=== PATIENT | female | born 1965 | race Caucasian/White ===

== ENCOUNTER 2021-03-05 04:27 | Day surgery (SDC) | payer OTHER ==
[2021-03-04 15:03] VITALS: BMI 43.9
[2021-03-05] MEDS ORDERED: LIDOCAINE 1% P/F 10 MG/ML VIAL INF ONE (09:51)
[2021-03-05] MEDS ORDERED: IOHEXOL 180 MG/1 ML ML IJ ONE (09:54)
[2021-03-05] MEDS ORDERED: BUPIVACAINE HCL/PF 0.75% 10 ML VIAL NR ONE (09:55)
[2021-03-05 12:03] VITALS: BP 107/45; PULSE 56; TEMP 96.6
== END 2021-03-05 11:40 | disposition home or self-care (01) ==
LOC: JASU-SURG 04:27
PROVIDERS: ATTEND Pain Medicine Pain Medicine
PROC: BR16YZZ Fluoroscopy of Lumbar Facet Joint(s) using Other Contrast (ICD-10-PCS; 2021-03-05)
PROC: 3E0T3BZ Introduction of Anesthetic Agent into Peripheral Nerves and Plexi, Percutaneous Approach (ICD-10-PCS; principal; 2021-03-05 10:30)
DX: M47.816 Spondylosis without myelopathy or radiculopathy, lumbar region (principal)
CPT/HCPCS: 76000-TC-FY

== ENCOUNTER 2021-04-02 04:57 | Day surgery (SDC) | payer OTHER ==
[2021-03-31 15:45] VITALS: BMI 43.9
[2021-04-02] MEDS ORDERED: BUPIVACAINE HCL/PF 0.75% 10 ML VIAL ONE (07:15)
[2021-04-02] MEDS ORDERED: LIDOCAINE HCL/PF 1% SDV 5ML VIAL ONE (07:15)
[2021-04-02] MEDS ORDERED: BUPIVACAINE HCL/PF 0.75% 10 ML VIAL NR ONE (11:30)
[2021-04-02] MEDS ORDERED: LIDOCAINE HCL 1% PRESERVATIVE FREE - 30ML VIAL IJ ONE (11:31)
[2021-04-02] MEDS ORDERED: IOHEXOL 180 MG/1 ML ML IJ ONE (11:31)
[2021-04-02] MEDS ORDERED: ACETAMINOPHEN 325 MG TABLET (FP) ONE (13:59)
[2021-04-02 15:11] VITALS: BP 103/58; PULSE 54; TEMP 97.7
== END 2021-04-02 14:10 | disposition home or self-care (01) ==
LOC: JASU-SURG 04:57
PROVIDERS: ATTEND Pain Medicine Pain Medicine
PROC: BR16YZZ Fluoroscopy of Lumbar Facet Joint(s) using Other Contrast (ICD-10-PCS; 2021-04-02)
PROC: 3E0T3BZ Introduction of Anesthetic Agent into Peripheral Nerves and Plexi, Percutaneous Approach (ICD-10-PCS; principal; 2021-04-02 10:15)
DX: M47.816 Spondylosis without myelopathy or radiculopathy, lumbar region (principal)
CPT/HCPCS: 76000-TC-FY

== ENCOUNTER 2022-08-17 09:22 | Day surgery (SDC) | payer OTHER ==
[2022-08-15 11:59] VITALS: BMI 46.9
[2022-08-17] MEDS ORDERED: BSS (NA/CA/MG/K) BALANCED SALT SOLUTION OPHTH SOLN 15 ML BOTTLE ONE (09:45)
[2022-08-17] MEDS ORDERED: LIDOCAINE 1% P/F 10 MG/ML VIAL ONE (09:45)
[2022-08-17] MEDS ORDERED: NEO/POLYMYX B SULF/DEXAMETH OPHTHALMIC 5ML BOTTLE ONE (09:46)
[2022-08-17] MEDS ORDERED: CARBACHOL 0.01% INTRA-OCULAR 1.5 ML VIAL ONE (09:46)
[2022-08-17] MEDS: TROPICAMIDE 1% OPHTH SOLN 15 ML BOTTLE ONE ×3 (10:35→10:45)
[2022-08-17] MEDS: CYCLOPENTOLATE 2% OPHTH SOLN 2 ML BOTTLE ONE ×3 (10:35→10:45)
[2022-08-17] MEDS: CIPROFLOXACIN 0.3% EYE DROPS 5 ML BOTTLE ONE ×3 (10:35→10:45)
[2022-08-17] MEDS: PHENYLEPHRINE 2.5% OPHTH SOLN 15 ML BOTTLE ONE ×3 (10:35→10:45)
[2022-08-17 10:43] VITALS: RESP 16
[2022-08-17] MEDS ORDERED: MIDAZOLAM HCL 2 MG/2 ML SINGLE DOSE VIAL ONE (11:51)
[2022-08-17 12:40] VITALS: BP 137/91; TEMP 97.5
[2022-08-17 12:52] VITALS: PULSE 64
== END 2022-08-17 13:50 | disposition home or self-care (01) ==
LOC: FASU 09:22
PROVIDERS: ATTEND Ophthalmology
PROC: 08RJ3JZ Replacement of Right Lens with Synthetic Substitute, Percutaneous Approach (ICD-10-PCS; principal; 2022-08-17 11:57)
DX: H26.8 Other specified cataract (principal)
CPT/HCPCS: 66984; V2632; 82962

== ENCOUNTER 2023-01-03 13:53 | Emergency (ER) | payer OTHER ==
[2023-01-03 14:15] VITALS: BP 131/59; PULSE 64; RESP 18; TEMP 98.2; BMI 37.8
[2023-01-03] MEDS ORDERED: KETOROLAC TROMETHAMINE 30 MG/1 ML VIAL IM ONE (15:36)
[2023-01-03] MEDS ORDERED: ACETAMINOPHEN 325 MG TABLET (FP) PO ONE (15:36)
[2023-01-03] MEDS ORDERED: LIDOCAINE 5% TOPICAL PATCH TP ONE (15:36)
[2023-01-03] MEDS ORDERED: ACETAMINOPHEN 325 MG TABLET (FP) ONE (15:44)
[2023-01-03] MEDS ORDERED: LIDOCAINE 5% TOPICAL PATCH ONE (15:44)
[2023-01-03] MEDS ORDERED: KETOROLAC TROMETHAMINE 30 MG/1 ML VIAL ONE (15:45)
[2023-01-03 17:11] LABS: EPI CELLS 25 /uL (0-25.1); HYALINE CASTS 1 /uL (0-3.1); PH,URINE 5.5 (5.0-8.0); URINE APPEARANCE CLEAR; URINE BACTERIA 179 /uL (0-1359); URINE BILIRUBIN NEGATIVE (NEGATIVE); URINE COLOR YELLOW; URINE GLUCOSE (UA) NEGATIVE (NEGATIVE); URINE KETONE NEGATIVE (NEGATIVE); URINE LEUK ESTERASE NEGATIVE (NEGATIVE); URINE NITRITE NEGATIVE (NEGATIVE); URINE PROTEIN NEGATIVE (NEGATIVE); URINE RBC 17 /uL (0-23.9); URINE UROBILINOGEN 0.2 mg/dL (0.2-1.0); URINE WBC 6 /uL (0-25.8)
[2023-01-03] MEDS ORDERED: LIDOCAINE PATCH REMOVAL MC ONE (22:00)
== END 2023-01-03 18:00 | disposition home or self-care (01) ==
LOC: JERFT 13:53
PROC: 3E0233Z Introduction of Anti-inflammatory into Muscle, Percutaneous Approach (ICD-10-PCS; principal; 2023-01-03)
DX: N20.0 Calculus of kidney (principal); M54.50 Low back pain, unspecified; R10.9 Unspecified abdominal pain
CPT/HCPCS: 74176-TC; 81003; 87086; 87186; 99284-25

== ENCOUNTER 2023-05-19 08:40 | Day surgery (SDC) | payer OTHER ==
[2023-05-11 15:51] VITALS: BMI 36.7
[2023-05-19] MEDS ORDERED: CEFAZOLIN SODIUM 2 GM in DEXTROSE 5%-WATER 100 ML IVPB ONE (10:00)
[2023-05-19] MEDS ORDERED: BUPIVACAINE HCL/PF 0.5% (5MG/ML) 10 ML VIAL ONE (10:19)
[2023-05-19] MEDS ORDERED: BUPIVACAINE LIPOSOME/PF (EXPAREL) 266 MG/20 ML VIAL ONE (10:19)
[2023-05-19] MEDS ORDERED: FENTANYL CITRATE/PF 50 MCG/ML VIAL ONE (10:19)
[2023-05-19] MEDS ORDERED: MIDAZOLAM HCL 2 MG/2 ML SINGLE DOSE VIAL ONE ×3 (10:19→11:32)
[2023-05-19] MEDS ORDERED: TRANEXAMIC ACID 1000 MG/10 ML VIAL IVPUSH ONE (10:30)
[2023-05-19] MEDS ORDERED: VANCOMYCIN 1,000 MG VIAL (RESTRICTED TO ID ONLY) ONE ×2 (11:20→11:49)
[2023-05-19] MEDS ORDERED: TRANEXAMIC ACID 1000 MG/10 ML VIAL ONE ×2 (11:20→11:49)
[2023-05-19] MEDS ORDERED: ePHEDrine SULFATE 50 MG/1 ML AMPULE ONE (11:29)
[2023-05-19] MEDS ORDERED: PROPOFOL 20 ML ONE ×2 (11:39→12:23)
[2023-05-19] MEDS ORDERED: ceFAZolin SODIUM 1 GM VIAL ONE (11:49)
[2023-05-19] MEDS ORDERED: ONDANSETRON 4 MG/2 ML VIAL ONE (11:49)
[2023-05-19] MEDS ORDERED: DEXAMETHASONE SOD PHOSPHATE 4 MG/1 ML VIAL ONE (11:49)
[2023-05-19] MEDS ORDERED: VASOPRESSIN 20 UNITS/ML VIAL IV ONE (12:08)
[2023-05-19] MEDS ORDERED: BUPIVICAINE 0.25%/MORPH PF/KETOROLAC - 51ML DISP.SYRINGE IA ONE (12:59)
[2023-05-19] MEDS ORDERED: PROPOFOL 40 ML ONE (13:05)
[2023-05-19] MEDS ORDERED: oxyCODONE HCL 5 MG TABLET PO PRN (13:30)
[2023-05-19] MEDS ORDERED: ONDANSETRON 4 MG/2 ML VIAL IVPUSH PRN ×2 (13:30→14:52)
[2023-05-19] MEDS ORDERED: LACTATED RINGERS SOLUTION 1,000 ML IV SCH ×2 (13:30→15:00)
[2023-05-19] MEDS: ACETAMINOPHEN 1000 MG/100 ML BAG IVPB ONE (14:35)
[2023-05-19] MEDS ORDERED: ACETAMINOPHEN INJECTION 100 ML IVPB ONE (14:36)
[2023-05-19] MEDS ORDERED: MAG HYDROX/AL HYDROX/SIMETH 30 ML UNIT-DOSE CUP PO PRN (14:52)
[2023-05-19] MEDS ORDERED: MAGNESIUM HYDROX 2400MG/30ML ORAL SUSPENSION 30 ML CUP PO PRN (14:52)
[2023-05-19] MEDS: SODIUM CHLORIDE 1,000 ML IV SCH (18:45)
[2023-05-19] MEDS: INSULIN SLIDING SCALE (NOVOLOG) 1 VIAL SQ SCH ×2 (18:57→21:10)
[2023-05-19] MEDS: CEFAZOLIN SODIUM 2 GM in DEXTROSE 5%-WATER 100 ML IVPB SCH (20:54)
[2023-05-19] MEDS: ACETAMINOPHEN 1000 MG/100 ML BAG IVPB SCH (20:55)
[2023-05-19] MEDS: GABAPENTIN 300 MG CAPSULE PO SCH (21:10)
[2023-05-19] MEDS: oxyCODONE HCL 10 MG SUSTAINED ACTING TABLET PO SCH (21:11)
[2023-05-19] MEDS: SENNOSIDES/DOCUSATE COMBO (SENNA PLUS) TABLET (UD) PO SCH (21:11)
[2023-05-20] MEDS: ACETAMINOPHEN 1000 MG/100 ML BAG IVPB ONE (03:12)
[2023-05-20] MEDS: ACETAMINOPHEN 1000 MG/100 ML BAG IVPB SCH ×2 (03:14→08:53)
[2023-05-20] MEDS: CEFAZOLIN SODIUM 2 GM in DEXTROSE 5%-WATER 100 ML IVPB SCH ×2 (03:15→12:50)
[2023-05-20] MEDS: INSULIN SLIDING SCALE (NOVOLOG) 1 VIAL SQ SCH ×4 (06:59→21:49)
[2023-05-20] MEDS: LEVOTHYROXINE NA 125 MCG TABLET (FP) PO SCH (06:59)
[2023-05-20] MEDS: oxyCODONE HCL 5 MG TABLET PO PRN ×2 (07:00→15:42)
[2023-05-20 08:49] LABS: BLOOD UREA NITROGEN 13.7 mg/dl (7-18); CALCIUM 8.8 mg/dl (8.5-10.1); CREATININE 0.7 mg/dl (0.6-1.3); POTASSIUM 4.3 mmol/L (3.5-5.1)
[2023-05-20 08:54] LABS: HEMATOCRIT 36.2 % (32.4-45.2); HEMOGLOBIN 11.4 G/dL (10.7-15.3); MCH 28.8 pg (25.7-33.7); MCHC 31.5 g/dl (32.0-36.0); MEAN CELL VOLUME 91.3 fl (80-96); MEAN PLT VOLUME 9.3 fl (7.5-11.1); PLATELET COUNT 275.9 10^3/uL (134-434); RBC 3.96 10^6/uL (3.60-5.2); RDW 15.6 % (11.6-15.6); WHITE BLOOD COUNT 12.4 10^3/uL (4.0-10.8)
[2023-05-20] MEDS: PANTOPRAZOLE 40 MG TABLET PO SCH (09:51)
[2023-05-20] MEDS: oxyCODONE HCL 10 MG SUSTAINED ACTING TABLET PO SCH ×2 (09:51→21:48)
[2023-05-20] MEDS: GABAPENTIN 300 MG CAPSULE PO SCH ×2 (09:51→21:46)
[2023-05-20] MEDS: MULTIVITAMINS (DAILY MVI) TABLET (FP) PO SCH (09:52)
[2023-05-20] MEDS: SENNOSIDES/DOCUSATE COMBO (SENNA PLUS) TABLET (UD) PO SCH ×2 (09:53→21:46)
[2023-05-20] MEDS ORDERED: RIVAROXABAN 2.5 MG TABLET PO SCH (10:00)
[2023-05-20] MEDS: ACETAMINOPHEN 500 MG TABLET (FP) PO SCH ×2 (15:42→21:47)
[2023-05-20] MEDS: SODIUM CHLORIDE 1,000 ML IV SCH (17:52)
[2023-05-20] MEDS: RIVAROXABAN 2.5 MG TABLET PO SCH (21:47)
[2023-05-21] MEDS: ACETAMINOPHEN 1000 MG/100 ML BAG IVPB ONE (01:55)
[2023-05-21] MEDS: ACETAMINOPHEN 500 MG TABLET (FP) PO SCH ×3 (07:00→22:37)
[2023-05-21] MEDS: INSULIN SLIDING SCALE (NOVOLOG) 1 VIAL SQ SCH ×4 (07:01→22:41)
[2023-05-21] MEDS: LEVOTHYROXINE NA 125 MCG TABLET (FP) PO SCH (07:02)
[2023-05-21 08:46] LABS: HEMATOCRIT 35.5 % (32.4-45.2); HEMOGLOBIN 11.1 G/dL (10.7-15.3); MCH 28.9 pg (25.7-33.7); MCHC 31.2 g/dl (32.0-36.0); MEAN CELL VOLUME 92.5 fl (80-96); MEAN PLT VOLUME 9.2 fl (7.5-11.1); PLATELET COUNT 253.1 10^3/uL (134-434); RBC 3.84 10^6/uL (3.60-5.2); RDW 16.1 % (11.6-15.6); WHITE BLOOD COUNT 11.2 10^3/uL (4.0-10.8)
[2023-05-21] MEDS: oxyCODONE HCL 10 MG SUSTAINED ACTING TABLET PO SCH ×2 (09:21→22:38)
[2023-05-21] MEDS: PANTOPRAZOLE 40 MG TABLET PO SCH (09:25)
[2023-05-21] MEDS: SENNOSIDES/DOCUSATE COMBO (SENNA PLUS) TABLET (UD) PO SCH ×2 (09:26→22:38)
[2023-05-21] MEDS: GABAPENTIN 300 MG CAPSULE PO SCH ×2 (09:26→22:38)
[2023-05-21] MEDS: RIVAROXABAN 2.5 MG TABLET PO SCH (09:26)
[2023-05-21] MEDS: MULTIVITAMINS (DAILY MVI) TABLET (FP) PO SCH (09:26)
[2023-05-21 09:49] LABS: BLOOD UREA NITROGEN 14.4 mg/dl (7-18); CALCIUM 8.6 mg/dl (8.5-10.1); CREATININE 0.7 mg/dl (0.6-1.3); POTASSIUM 4.1 mmol/L (3.5-5.1)
[2023-05-22] MEDS: ACETAMINOPHEN 500 MG TABLET (FP) PO SCH (06:19)
[2023-05-22] MEDS: LEVOTHYROXINE NA 125 MCG TABLET (FP) PO SCH (06:19)
[2023-05-22] MEDS: INSULIN SLIDING SCALE (NOVOLOG) 1 VIAL SQ SCH (06:33)
[2023-05-22] MEDS: SENNOSIDES/DOCUSATE COMBO (SENNA PLUS) TABLET (UD) PO SCH (09:58)
[2023-05-22] MEDS: GABAPENTIN 300 MG CAPSULE PO SCH (09:59)
[2023-05-22] MEDS: RIVAROXABAN 2.5 MG TABLET PO SCH ×2 (09:59→10:00)
[2023-05-22] MEDS: MULTIVITAMINS (DAILY MVI) TABLET (FP) PO SCH (09:59)
[2023-05-22] MEDS: oxyCODONE HCL 10 MG SUSTAINED ACTING TABLET PO SCH (09:59)
[2023-05-22] MEDS: PANTOPRAZOLE 40 MG TABLET PO SCH (09:59)
[2023-05-22 10:02] VITALS: BP 110/52; PULSE 72; RESP 18; TEMP 97.8
== END 2023-05-22 13:10 | disposition home health service (06) ==
LOC: FASUSAT 08:40 → FM/S 15:42 → FASUSAT 05-22 13:10
PROC: 0SSDXZZ Reposition Left Knee Joint, External Approach (ICD-10-PCS; 2023-05-19)
PROC: 0SRC0JA Replacement of Right Knee Joint with Synthetic Substitute, Uncemented, Open Approach (ICD-10-PCS; principal; 2023-05-19 12:07)
PROC: 8E0Y0CZ Robotic Assisted Procedure of Lower Extremity, Open Approach (ICD-10-PCS; 2023-05-19 12:07)
DX: M17.11 Unilateral primary osteoarthritis, right knee (principal); M24.662 Ankylosis, left knee
CPT/HCPCS: 20985; 27447; 27570; C1776; S2900; 36415; 73560-TC-RT-FY; 80048; 82962; 85027; 88305-TC; 88311-TC; 94760; 97116-GP